=== PATIENT | male | born 1985 | race Caucasian/White ===

== ENCOUNTER 2018-05-01 16:41 | Emergency (ER) | payer MEDICAID ==
[~2018-05-01] VITALS: Ht 177.8 cm; Wt 70.0 kg
[~2018-05-01 16:41] MED LIST: CLON-527 PO; GABA-769 PO; NORCO10T PO
[2018-05-01 18:24] VITALS: BP 104/65
== END 2018-05-01 19:16 | disposition home or self-care (01) ==
LOC: ER 16:42
DX: R07.89 Other chest pain (principal); R00.2 Palpitations; K08.89 Other specified disorders of teeth and supporting structures; F17.200 Nicotine dependence, unspecified, uncomplicated; Z98.890 Other specified postprocedural states; Z79.899 Other long term (current) drug therapy
CPT/HCPCS: 93005; 99283

== ENCOUNTER 2019-01-02 01:12 | Emergency (ER) | payer MEDICAID ==
[~2019-01-02] VITALS: Ht 177.8 cm; Wt 58.1 kg
[2019-01-02 01:15] VITALS: BP 143/86
--- NOTE | 2019-01-02 01:30 | NUR ---
upon assessment, pt stated that he has had these symptoms for 2 yrs. when asked about his elevated heart rate, i asked about drugs. "i might have done some drugs." when asked what drugs pt states "i mean i didnt do any drugs." i asked which it was and he couldnt answer the question
[2019-01-02] MEDS ORDERED: proCHLORperazine 10mg tablet PO ONE (01:35)
[2019-01-02] MEDS ORDERED: quetiapine 100mg tablet PO SCH (01:35)
[2019-01-02] MEDS ORDERED: QUET25TA PO (01:38)
[2019-01-02] MEDS ORDERED: PROC-8 PO (01:38)
[2019-01-02] MEDS ORDERED: QUEtiapine 25mg tablet PO SCH (01:41)
== END 2019-01-02 01:53 | disposition home or self-care (01) ==
LOC: ER 01:13
DX: J06.9 Acute upper respiratory infection, unspecified (principal); H92.03 Otalgia, bilateral; Z98.890 Other specified postprocedural states; Z79.899 Other long term (current) drug therapy
CPT/HCPCS: 99283

== ENCOUNTER 2019-05-12 18:51 | Emergency (ER) | payer MEDICAID ==
[~2019-05-12] VITALS: Ht 177.8 cm; Wt 75.0 kg
[~2019-05-12 18:51] MED LIST changes: +PROC-8 PO; +QUET25TA PO
[2019-05-12 19:25] LABS: BASOPHILS % (AUTO) 0.2 % (0-1); EOSINOPHILS % (AUTO) 0.1 % (0-6); HEMOGLOBIN 15.8 g/dl (14.0-17.9); LYMPHOCYTES # (AUTO) 1.3 X10'3 (1.1-4.8); MEAN CORPUSCULAR HEMOGLOBIN 31.7 PG (27.0-31.0); MEAN CORPUSCULAR HGB CONC 35.1 g/dL (33.0-36.5); MEAN CORPUSCULAR VOLUME 90.3 FL (78-98); MEAN PLATELET VOLUME 8.6 FL (7.4-10.4); MONOCYTES # (AUTO) 0.8 X10'3 (0-0.9); MONOCYTES % (AUTO) 7.6 % (2-12); NEUTROPHILS # (AUTO) 8.1 X10'3 (1.8-7.7); NEUTROPHILS % (AUTO) 79.1 % (42-75); PLATELET COUNT 341 X10'3 (140-440); RED BLOOD COUNT 4.99 X10'6 (4.70-6.10); RED CELL DISTRIBUTION WIDTH 13.2 % (11.5-14.5); WHITE BLOOD COUNT 10.2 X10'3 (4.5-11.0)
--- NOTE | 2019-05-12 19:36 | NUR ---
INCREASED CARMINE LEVEL II R/T 1799 WRITTEN BY .
[2019-05-12 19:37] LABS: ALANINE AMINOTRANSFERASE 28 U/L (12-78); ALBUMIN 4.4 G/DL (3.4-5.0); ALBUMIN/GLOBULIN RATIO 1.1 (1.1-1.5); ALKALINE PHOSPHATASE 99 IU/L (46-116); ANION GAP 13 (8-16); ASPARTATE AMINO TRANSFERASE 13 U/L (10-37); BILIRUBIN,TOTAL 0.5 MG/DL (0.1-1.0); BLOOD UREA NITROGEN 12 MG/DL (7-18); BUN/CREATININE RATIO 11.1 (5.4-32.0); CALCIUM 9.3 MG/DL (8.5-10.1); CHLORIDE 99 MMOL/L (99-107); CREATININE 1.08 MG/DL (0.60-1.10); GLUCOSE 109 MG/DL (70-104); POTASSIUM 3.6 MMOL/L (3.5-5.1); SODIUM 136 MMOL/L (135-145); TOTAL CARBON DIOXIDE 24.5 MMOL/L (24-32); TOTAL PROTEIN 8.5 G/DL (6.4-8.2); eGFR 79 ML/MIN
[2019-05-12 19:39] LABS: PARTIAL THROMBOPLASTIN TIME 31 SECONDS (22-32)
[2019-05-12] MEDS ORDERED: LORazepam 2 mg/ml vial IM ONE (19:45)
[2019-05-12 19:53] LABS: ETHANOL < 0.010 GM/DL (0.0-0.010)
[2019-05-12 20:34] LABS: CLARITY,URINE CLEAR (Clear); COLOR,URINE YELLOW (Yellow); GLUCOSE, URINE NEGATIVE (Neg); KETONES,URINE >=80 mg/dl (Neg); LEUKOCYTE ESTERASE ,URINE NEGATIVE (Neg); NITRITES, URINE NEGATIVE (Neg); OCCULT BLOOD,URINE NEGATIVE (Neg); PH,URINE 5.5 (4.8-8.0); PROTEIN,URINE TRACE mg/dl (Neg); UROBILINOGEN,URINE 0.2 E.U/dL (0.2-1.0)
[2019-05-12 20:36] LABS: UA COLLECTION TYPE CLN CATCH MIDSTREAM
[2019-05-12 20:40] LABS: BACTERIA,URINE 1+ /HPF (Neg); MUCUS STRANDS MODERATE /LPF (Neg); RBC,URINE NONE SEEN /HPF (0-2); SQUAMOUS EPITHELIAL CELL,UR FEW /LPF (FEW); WBC,URINE 0-4 /HPF (0-4)
[2019-05-12 20:47] LABS: URINE AMPHETAMINE SCREEN NEGATIVE (Neg); URINE BARBITUATE SCREEN NEGATIVE (Neg); URINE BENZODIAZEPINES SCREEN NEGATIVE (Neg); URINE CANNABINOID SCREEN NEGATIVE (Neg); URINE COCAINE SCREEN NEGATIVE (Neg); URINE METHADONE SCREEN NEGATIVE (Neg); URINE OPIATE SCREEN NEGATIVE (Neg); URINE PHENCYCLIDINE SCREEN NEGATIVE (Neg)
[2019-05-12] MEDS ORDERED: NO HOME MEDS (20:59)
--- NOTE | 2019-05-12 21:00 | NUR ---
Received report from Katherine BRAVO from ED. States will pull IV and complete medication reconcilliation and then bring patient to ED overflow. Will assess and monitor patient when he arrives.
--- NOTE | 2019-05-13 | NUR ---
Patient became fidgety, requesting additional medications for sleep and anxiety. Discussed with Dr. Miranda who provided order for Ativan 2 mg orally once. Will continue to monitor.
[2019-05-13] MEDS ORDERED: LORazepam 1 MG tablet PO ONE (00:05)
--- NOTE | 2019-05-13 00:49 | NUR ---
Mother called to see if patient is sleeping. State that the patient appears to be sleeping at this time. Mother states, "it has been a long 3 years with all of this stuff." Mother states, "I am 70 years old and still working because I am uncertain about what will be needed for my son." States that she never thought she would have a son with schizophrenia, psychosis, whatever it is this time. Mother is tearful and states she will be here in morning after taking grand-daughter to school. States she is going to try to get ahold of his prior psychatrist for medications he has been on prior. Will continue to monitor.
--- NOTE | 2019-05-13 02:18 | NUR ---
Patient is concerned about his left arm cuts becoming infected, no signs/ symptoms at this time. Very thin cuts which appear to have scabs forming. States that he used a box cutting razor to make the cuts to himself. Explained that the physician will have to look at sites and decide if he wants to treat further.
[2019-05-13] MEDS: LORazepam 1 MG tablet PO PRN ×2 (04:47→13:05)
--- NOTE | 2019-05-13 05:02 | NUR ---
Patient began pacing unit, looking at area beyond curtain, discussed with patient the boudaries of the unit and to stay within them. Requested additional Ativan from Dr. Miranda, provided. Patient additionally asked if he will receive antibiotics for his arm. Re-iterated that the physician will assess his wound to decide if it needs further treatment, will continue to monitor.
[2019-05-13 05:44] VITALS: BP 119/73
--- NOTE | 2019-05-13 06:39 | NUR ---
Note ayden in ED - 05/13/19 at 0748 by EDISON Patient sleeping on right side. No distress observed. Continue to monitor.
--- NOTE | 2019-05-13 06:39 | NUR ---
Patient sleeping supine. No distress observed. Continue to monitor.
--- NOTE | 2019-05-13 07:05 | NUR ---
Patient ambulatory to nurses station, steady gait. No distress observed. Continue to monitor.
--- NOTE | 2019-05-13 07:32 | NUR ---
Patient up to nurses station and then back to room. No distress observed. Continue to monitor.
[2019-05-13] MEDS ORDERED: ondansetron 4mg rapidly disintigrating tab PO PRN (08:25)
== END 2019-05-13 13:25 | disposition home or self-care (01) ==
LOC: ER 18:52
DX: T50.992A Poisoning by other drugs, medicaments and biological substances, intentional self-harm, initial encounter (principal); S50.812A Abrasion of left forearm, initial encounter; S50.811A Abrasion of right forearm, initial encounter; S70.312A Abrasion, left thigh, initial encounter; S70.311A Abrasion, right thigh, initial encounter; R00.0 Tachycardia, unspecified; R45.851 Suicidal ideations; F41.9 Anxiety disorder, unspecified; F17.200 Nicotine dependence, unspecified, uncomplicated; Z98.890 Other specified postprocedural states; X58.XXXA Exposure to other specified factors, initial encounter; Y93.89 Activity, other specified; Y92.89 Other specified places as the place of occurrence of the external cause; Y99.8 Other external cause status
CPT/HCPCS: 36415; 71045; 80053; 80305; 80320; 81001; 84443; 84484; 85025; 85610; 85730; 93005; 96372; 99284; J2060; J2405

== ENCOUNTER 2019-05-13 17:05 | Emergency (ER) | payer MEDICAID ==
[~2019-05-13] VITALS: Ht 177.8 cm; Wt 68.2 kg
[~2019-05-13 17:05] MED LIST changes: -CLON-527 PO; -GABA-769 PO; +NO HOME MEDS; -NORCO10T PO; -PROC-8 PO; -QUET25TA PO
--- NOTE | 2019-05-13 17:46 | NUR ---
Pt brought back from triage and placed back into bed 26 that whe was earlier today when he was cleared and released. Pt is spitting up blood tinged clear secretions. Pt states he just wants to go home and go to bed. Pt states he was injecting liquid nicotine he got from tobacco into his left shoulder. Pt states his parents thought he was trying to overdose and brought him back to the ED.
--- NOTE | 2019-05-13 18:03 | NUR ---
Pt has red itchy rash on arms and abdomen that became noticeable in the last 5 minutes. Luciana BRAVO went to notify .
[2019-05-13] MEDS ORDERED: diphenhydrAMINE 25mg capsule PO ONE ×2 (18:05→21:05)
--- NOTE | 2019-05-13 18:15 | NUR ---
Benadryl given. Hives over trunk and arms. +itching. LOUIE Mayo with patient.
[2019-05-13 18:40] LABS: URINE AMPHETAMINE SCREEN NEGATIVE (Neg); URINE BARBITUATE SCREEN NEGATIVE (Neg); URINE BENZODIAZEPINES SCREEN NEGATIVE (Neg); URINE CANNABINOID SCREEN NEGATIVE (Neg); URINE COCAINE SCREEN NEGATIVE (Neg); URINE METHADONE SCREEN NEGATIVE (Neg); URINE OPIATE SCREEN NEGATIVE (Neg); URINE PHENCYCLIDINE SCREEN NEGATIVE (Neg)
[2019-05-13] MEDS ORDERED: LORazepam 1 MG tablet PO ONE (18:55)
[2019-05-13 18:56] LABS: BASOPHILS % (AUTO) 0.1 % (0-1); EOSINOPHILS % (AUTO) 0 % (0-6); HEMATOCRIT 49.7 % (42.0-52.0); HEMOGLOBIN 17.4 g/dl (14.0-17.9); LYMPHOCYTES # (AUTO) 0.9 X10'3 (1.1-4.8); LYMPHOCYTES % (AUTO) 4.4 % (21-51); MEAN CORPUSCULAR HEMOGLOBIN 31.5 PG (27.0-31.0); MEAN PLATELET VOLUME 8.2 FL (7.4-10.4); MONOCYTES # (AUTO) 1.9 X10'3 (0-0.9); MONOCYTES % (AUTO) 9.7 % (2-12); NEUTROPHILS # (AUTO) 16.4 X10'3 (1.8-7.7); NEUTROPHILS % (AUTO) 85.8 % (42-75); PLATELET COUNT 303 X10'3 (140-440); RED BLOOD COUNT 5.53 X10'6 (4.70-6.10); RED CELL DISTRIBUTION WIDTH 13.3 % (11.5-14.5); WHITE BLOOD COUNT 19.2 X10'3 (4.5-11.0)
[2019-05-13] MEDS ORDERED: normal saline 1000ML IV soln IVB ONE (19:15)
[2019-05-13 19:17] LABS: ALANINE AMINOTRANSFERASE 26 U/L (12-78); ALBUMIN 4.6 G/DL (3.4-5.0); ALBUMIN/GLOBULIN RATIO 1.2 (1.1-1.5); ALKALINE PHOSPHATASE 104 IU/L (46-116); ANION GAP 11 (8-16); ASPARTATE AMINO TRANSFERASE 12 U/L (10-37); BILIRUBIN,TOTAL 0.6 MG/DL (0.1-1.0); BLOOD UREA NITROGEN 11 MG/DL (7-18); BUN/CREATININE RATIO 8.3 (5.4-32.0); CALCIUM 9.4 MG/DL (8.5-10.1); CHLORIDE 98 MMOL/L (99-107); CREATININE 1.32 MG/DL (0.60-1.10); ETHANOL < 0.010 GM/DL (0.0-0.010); GLUCOSE 110 MG/DL (70-104); POTASSIUM 3.2 MMOL/L (3.5-5.1); SODIUM 136 MMOL/L (135-145); TOTAL CARBON DIOXIDE 26.6 MMOL/L (24-32); TOTAL PROTEIN 8.5 G/DL (6.4-8.2); eGFR 63 ML/MIN
--- NOTE | 2019-05-13 19:25 | NUR ---
Patient sleeping, no distress observed. Continue to monitor
--- NOTE | 2019-05-13 20:10 | NUR ---
Patient has less itching but very little improvement in hives. Patient denies SOB and denies feeling like his throat is closing. Continue to monitor.
[2019-05-13] MEDS ORDERED: famotidine 10mg tablet PO STA (21:04)
[2019-05-13] MEDS ORDERED: potassium Cl 20 mEq SR tablet PO STA (21:04)
[2019-05-13] MEDS ORDERED: famotidine 20mg tablet PO STA (21:12)
--- NOTE | 2019-05-13 21:25 | NUR ---
LAWRENCE Ordoñez and LAWRENCE Nunez attempted to look for a vein for an IV site. None seen. LAWRENCE Ordoñez attempted an EJ x 4 without success. Lexis Mary RN called and attempted with red light x 5 to no avail. RN spoke with LOUIE Mayo and IV cancelled. Patient's WBC's are elevated. Per Nicholas, probable histamine reaction caused elevation of WBCs. Patient calm and cooperative during attempts. Continue to monitor.
--- NOTE | 2019-05-13 21:58 | NUR ---
Patient given oral meds and attempting to sleep. Continue to monitor.
--- NOTE | 2019-05-13 23:28 | NUR ---
Packet faxed to [facility]. Unable to confirm receipt of packet as out of business hours.
--- NOTE | 2019-05-13 23:32 | NUR ---
Patient continues to sleep. No restlessness observed. Continue to monitor.
--- NOTE | 2019-05-14 06:26 | NUR ---
PT PACING, ANXIOUS, ASKING FOR BENADRYL AND ATIVAN.
[2019-05-14] MEDS ORDERED: metoclopramide 5 mg/ml inj IM ONE (06:45)
[2019-05-14] MEDS ORDERED: LORazepam 1 MG tablet PO ONE (06:45)
[2019-05-14] MEDS ORDERED: diphenhydrAMINE 25mg capsule PO ONE ×3 (06:45→16:45)
--- NOTE | 2019-05-14 08:10 | NUR ---
PT SLEEPING ON LEFT SIDE, RR EVEN AND UNLABORED
--- NOTE | 2019-05-14 08:47 | NUR ---
PT MOM CAME TO VISIT. PT WAS ASLEEP. ASKED HER TO RETURN LATER. CHRISTIANO ORTIZ [phone] OR ELOISA ORTIZ [phone]
--- NOTE | 2019-05-14 10:26 | NUR ---
PT SLEEPING ON LEFT SIDE, RR EVEN AND UNLABORED
[2019-05-14 10:36] LABS: BASOPHILS % (AUTO) 0.3 % (0-1); EOSINOPHILS # (AUTO) 0.1 X10'3 (0-0.9); EOSINOPHILS % (AUTO) 0.6 % (0-6); HEMATOCRIT 48.1 % (42.0-52.0); HEMOGLOBIN 16.7 g/dl (14.0-17.9); LYMPHOCYTES # (AUTO) 1.2 X10'3 (1.1-4.8); LYMPHOCYTES % (AUTO) 9.8 % (21-51); MEAN CORPUSCULAR HGB CONC 34.7 g/dL (33.0-36.5); MEAN CORPUSCULAR VOLUME 89.3 FL (78-98); MEAN PLATELET VOLUME 8.1 FL (7.4-10.4); MONOCYTES # (AUTO) 0.8 X10'3 (0-0.9); MONOCYTES % (AUTO) 6.2 % (2-12); NEUTROPHILS # (AUTO) 10.5 X10'3 (1.8-7.7); NEUTROPHILS % (AUTO) 83.1 % (42-75); PLATELET COUNT 319 X10'3 (140-440); RED BLOOD COUNT 5.38 X10'6 (4.70-6.10); RED CELL DISTRIBUTION WIDTH 13.4 % (11.5-14.5); WHITE BLOOD COUNT 12.7 X10'3 (4.5-11.0)
[2019-05-14 10:54] LABS: ALANINE AMINOTRANSFERASE 23 U/L (12-78); ALBUMIN 4.2 G/DL (3.4-5.0); ALBUMIN/GLOBULIN RATIO 1.1 (1.1-1.5); ALKALINE PHOSPHATASE 100 IU/L (46-116); ANION GAP 10 (8-16); ASPARTATE AMINO TRANSFERASE 16 U/L (10-37); BILIRUBIN,TOTAL 0.6 MG/DL (0.1-1.0); BLOOD UREA NITROGEN 13 MG/DL (7-18); BUN/CREATININE RATIO 11.1 (5.4-32.0); CALCIUM 9.1 MG/DL (8.5-10.1); CHLORIDE 100 MMOL/L (99-107); CREATININE 1.17 MG/DL (0.60-1.10); GLUCOSE 97 MG/DL (70-104); POTASSIUM 4.1 MMOL/L (3.5-5.1); SODIUM 136 MMOL/L (135-145); TOTAL CARBON DIOXIDE 25.8 MMOL/L (24-32); TOTAL PROTEIN 8.2 G/DL (6.4-8.2); eGFR 72 ML/MIN
[2019-05-14] MEDS ORDERED: proCHLORperazine 10 MG/2 ml inj IM ONE (10:55)
--- NOTE | 2019-05-14 11:30 | NUR ---
PT MOTHER HERE TO VISIT
--- NOTE | 2019-05-14 13:29 | NUR ---
SITTING UP AND EATING LUNCH
--- NOTE | 2019-05-14 14:39 | NUR ---
PT IN NO DISTRESS. RESTING ON GURNEY
--- NOTE | 2019-05-14 15:12 | NUR ---
pt dad visiting. pt calm
--- NOTE | 2019-05-14 15:47 | NUR ---
PT HAD A MALE AND FEMALE FRIEND VISIT
--- NOTE | 2019-05-14 16:38 | NUR ---
PT CLEANSED WOUNDS ON RIGHT FOREARM WITH ASSISTANCE FROM STAFF
--- NOTE | 2019-05-14 17:07 | NUR ---
PT UP AND WALKING BACK AND FORTH IN THE [place]. PT IN NO OBVIOUS DISTRESS.
[2019-05-14] MEDS ORDERED: diphenhydrAMINE 25mg capsule PO PRN (18:05)
--- NOTE | 2019-05-14 18:31 | NUR ---
Pt requesting nicotine patch, he smokes 1 ppd, and also request ativan tonight to help him sleep. He has used ativan in thepast and it works well for his insommnia.
--- NOTE | 2019-05-14 18:48 | NUR ---
pt requesting to leave to unit to go outside with his father as chaprone. I explainied our strict policy. Pt was calm with my answer and only replied "thats crazy". He calmly walke back to his room with steady gait.
[2019-05-14] MEDS ORDERED: nicotine 14mg patch - 24hr TD ONE (19:50)
--- NOTE | 2019-05-14 19:52 | NUR ---
DR. FERRARO UPDATED OF PTS REQUEST FOR NICOTINE PATCH AND ATIVAN FOR SLEEP. VERBAL RECEIVED FOR NICOTINE PATCH 14 MCG AND SEROQUEL 200 MG HS. PTS MOTHER AND FATHER AT BEDSIDE.
--- NOTE | 2019-05-14 20:02 | NUR ---
PTS PARENTS LEAVING NOW. pT REPORTS HE WAS RECENTLY TAKING NEURONTIN FOR NEUROPATHY AND THAT IT HELPS WITH HIS RESTLESS LEG SYNDROM. LhE HAS RECENTLY BEEN NONCOMPLIANT WITH HIS MEDS AND REQUESTS THIS MED IF POSSIBLE. hE REPORTS SEROQUEL SOMETIMES INCREASES HIS RLS. I ASKED HIM TO GIVE ME SOME TIME THEN I OWULD UPDATE HIS DOCTOR.
[2019-05-14] MEDS: quetiapine 100mg tablet PO SCH (20:33)
--- NOTE | 2019-05-14 21:22 | NUR ---
PT GIVEN NICOTINE PATCH AND SEROQUEL FOR SLEEP. PT DENIES ANY SI AT THIS TIME. REPORTS HISTORY SI AND MENTAL HEALTH ADMISSIONS. REPORTS OVER THE PAST FEW YRS HE HAS BEEN STRUGGLING WITH DEPRESSION AND SI.
--- NOTE | 2019-05-14 22:30 | NUR ---
PT UP TO NURSES STATION TWICE OVER THE PAST HR TO REQUEST SALTINE CRACKERS. GIVEN CRACKERS.
--- NOTE | 2019-05-14 23:56 | NUR ---
PT APPEARS TO BE SLEEPING, LYING ON HIS RIGHT SIDE WITH BLANKETS TO HIS WAIST. RR 14 AND UNLABORED.
--- NOTE | 2019-05-15 03:10 | NUR ---
Pts mother , Yaritza, calling. Updated that Pt has been sleeping and appears comfortable.
--- NOTE | 2019-05-15 05:14 | NUR ---
Pt remains asleep. Lying on his back with blankets to his chest. RR 14 and unlabored. vss.
[2019-05-15] MEDS ORDERED: ibuprofen tablet 400 MG TABLET PO ONE (09:05)
[2019-05-15] MEDS ORDERED: LORazepam 1 MG tablet PO ONE ×2 (11:55→20:00)
--- NOTE | 2019-05-15 15:29 | NUR ---
Pt. has received Motrin, Ativan and Benadryl this shift. Pt's mother has been at bedside all shift.
--- NOTE | 2019-05-15 19:45 | NUR ---
Patient resting comfortably in bed with mother at bedside. Patient denies feeling suicidal and reports that he just recently starting cutting, "2 days ago" no his left arm because, "I can't sleep." Wounds are superficial but are scarred and healing. Patient also states that he boiled tobacco and kratom and injected it into his left deltoid, also to, "help me sleep." Patient requests something for anxiety and pain.
[2019-05-15] MEDS ORDERED: ibuprofen 200mg tablet PO ONE (20:00)
[2019-05-15] MEDS: quetiapine 100mg tablet PO SCH (20:16)
[2019-05-15 20:25] LABS: CLARITY,URINE CLEAR (Clear); COLOR,URINE STRAW (Yellow); GLUCOSE, URINE NEGATIVE (Neg); KETONES,URINE NEGATIVE (Neg); LEUKOCYTE ESTERASE ,URINE TRACE (Neg); NITRITES, URINE NEGATIVE (Neg); OCCULT BLOOD,URINE NEGATIVE (Neg); PH,URINE 5.5 (4.8-8.0); PROTEIN,URINE NEGATIVE (Neg); UROBILINOGEN,URINE 0.2 E.U/dL (0.2-1.0)
[2019-05-15 20:26] LABS: UA COLLECTION TYPE CLN CATCH MIDSTREAM
[2019-05-15 20:34] LABS: BACTERIA,URINE FEW /HPF (Neg); MUCUS STRANDS NONE SEEN /LPF (Neg); RBC,URINE NONE SEEN /HPF (0-2); SQUAMOUS EPITHELIAL CELL,UR FEW /LPF (FEW)
--- NOTE | 2019-05-15 21:10 | NUR ---
Patient sleeping comfortably on his left side with even, unlabored respirations.
--- NOTE | 2019-05-15 22:04 | NUR ---
Patient continues to sleep.
--- NOTE | 2019-05-15 22:46 | NUR ---
Patient awake and requests crackers whcih are provided.
--- NOTE | 2019-05-16 00:12 | NUR ---
Patient sleeping on his right side with even, unlabored breathing.
--- NOTE | 2019-05-16 01:33 | NUR ---
Patient sleeping supine.
--- NOTE | 2019-05-16 03:00 | NUR ---
Patient continues to sleep.
[2019-05-16 05:30] VITALS: BP 106/72
[2019-05-16] MEDS ORDERED: ibuprofen tablet 400 MG TABLET PO ONE (10:25)
[2019-05-16] MEDS ORDERED: nicotine 21mg patch - 24 hr TD ONE (10:25)
[2019-05-16] MEDS ORDERED: QUET200T PO (15:52)
== END 2019-05-16 16:30 | disposition home or self-care (01) ==
LOC: ER 17:06
DX: T78.49XA Other allergy, initial encounter (principal); F29 Unspecified psychosis not due to a substance or known physiological condition; R45.851 Suicidal ideations; D72.829 Elevated white blood cell count, unspecified; F41.9 Anxiety disorder, unspecified; Z98.890 Other specified postprocedural states; Z79.899 Other long term (current) drug therapy; X58.XXXA Exposure to other specified factors, initial encounter
CPT/HCPCS: 36415; 80053; 80305; 80320; 81001; 85025; 87088; 96372; 99285; J0780; J2765; Q0163; 71045